=== PATIENT | male | born 1960 | race Caucasian/White ===

== ENCOUNTER 2016-05-09 16:22 | Observation (INO) | payer OTHER ==
[~2016-05-09] VITALS: Ht 195.6 cm; Wt 136.7 kg
[~2016-05-09 16:22] MED LIST: DENIES MEDICATIONS
[2016-05-09 17:26] LABS: HEMATOCRIT 37.4 % (38.0-50.0); MCH 32.6 PG (29.0-34.0); MCHC 33.7 G/DL (30.0-36.0); MCV 96.9 FL (86-99); MEAN PLAT.VOLUME 9.8 uM^3 (9.0-12.4); PLATELET COUNT 276 K/uL (156-360); RBC DIS.WIDTH-CV 13.4 % (11.8-14.6); RBC DIS.WIDTH-SD 45.7 % (39-53); RED BLOOD COUNT 3.86 M/uL (4.00-5.50); WHITE BLOOD COUNT 10.3 K/uL (4.1-10.2)
[2016-05-09 17:35] LABS: CHLORIDE 95 mEq/L (99-109); POTASSIUM 4.2 mEq/L (3.7-5.4); SODIUM 134 mEq/L (136-147)
[2016-05-09 17:37] LABS: GLUCOSE 111 mg/dL (70-99)
[2016-05-09 17:38] LABS: ANION GAP 13 MEQ/L (2-14)
[2016-05-09 17:39] LABS: TOTAL BILIRUBIN 0.5 mg/dL (0.0-1.0)
[2016-05-09 17:40] LABS: ALKALINE PHOSPHATASE 94 IU/L (3-129)
[2016-05-09 17:41] LABS: GFR ESTIMATE (CALCULATED) > 59 mL/min/
[2016-05-09 17:42] LABS: UREA NITROGEN (BUN) 13 mg/dL (9-23)
[2016-05-09] MEDS ORDERED: LASIX40 MG PO (19:30)
[2016-05-09] MEDS ORDERED: APRESOLINE50 MG PO (19:31)
[2016-05-09] MEDS ORDERED: ZESTRIL40 MG PO (19:31)
[2016-05-09] MEDS ORDERED: LOPRESSOR100 M1 PO (19:32)
[2016-05-09] MEDS ORDERED: POTASSIUM GLUCO2 MEQ PO (19:33)
[2016-05-09] MEDS ORDERED: ALDACTONE25 MG PO (19:33)
[2016-05-09] MEDS ORDERED: Potassium Gluconate PO (19:36)
[2016-05-09 21:14] VITALS: BP 149/75
[2016-05-09 23:39] VITALS: BP 148/80
[2016-05-10 04:00] VITALS: BP 147/80
[2016-05-10 06:09] LABS: HEMATOCRIT 36.4 % (38.0-50.0); MCH 31.6 PG (29.0-34.0); MCV 95.8 FL (86-99); MEAN PLAT.VOLUME 10.3 uM^3 (9.0-12.4); PLATELET COUNT 269 K/uL (156-360); RBC DIS.WIDTH-CV 13.4 % (11.8-14.6); RBC DIS.WIDTH-SD 46.9 % (39-53); WHITE BLOOD COUNT 8.2 K/uL (4.1-10.2)
[2016-05-10 06:26] LABS: ALKALINE PHOSPHATASE 75 IU/L (3-129); ANION GAP 8 MEQ/L (2-14); CHLORIDE 94 MEQ/L (99-109); GFR ESTIMATE (CALCULATED) > 59 mL/min/; GLUCOSE 116 mg/dL (70-99); POTASSIUM 3.8 MEQ/L (3.7-5.4); SAMPLE HEMOLYSIS CHECK 0; SAMPLE ICTERIC CHECK 0; SAMPLE LIPEMIA CHECK 0; SODIUM 131 MEQ/L (136-147); TOTAL BILIRUBIN 0.6 MG/DL (0.0-1.0); UREA NITROGEN (BUN) 10 mg/dL (9-23)
[2016-05-10 06:52] LABS: METH RESISTANT S AUREUS PCR NEGATIVE (NEGATIVE)
[2016-05-10 06:53] LABS: PROBE CHECK PASS; SPECIMEN PROCESSING CONTROL PASS
[2016-05-10 09:58] VITALS: BP 139/71
[2016-05-10] MEDS ORDERED: CLEOCIN300 MG PO (10:29)
[2016-05-10] MEDS ORDERED: FLORASTOR250 MG PO (10:29)
== END 2016-05-10 11:33 | disposition home or self-care (01) ==
LOC: EME 16:22 → EDOF 19:24 → 5WEST 21:04
PROVIDERS: Internal Medicine; Nurse Practitioner Family
DX: L03.115 Cellulitis of right lower limb (principal); L03.116 Cellulitis of left lower limb; M25.421 Effusion, right elbow; R59.0 Localized enlarged lymph nodes; I87.8 Other specified disorders of veins; I11.0 Hypertensive heart disease with heart failure; I50.9 Heart failure, unspecified; E66.9 Obesity, unspecified; Z68.36 Body mass index [BMI] 36.0-36.9, adult; F17.200 Nicotine dependence, unspecified, uncomplicated; F10.10 Alcohol abuse, uncomplicated
CPT/HCPCS: 71020; 73080; 80053; 83605; 83880; 85027; 87040; 87070; 87075; 87205; 87641; 93970; 99281; 99284; G0378; J1644; J1940; J7030